=== PATIENT | female | born 1935 | race African-American/Black ===

== ENCOUNTER 2017-11-12 10:26 | Outpatient (CLI) | payer MEDICARE | END 2017-11-12 10:27 | disposition home or self-care (01) | LOC: BICMAMMO 10:26 | PROVIDERS: ATTEND Internal Medicine | DX: Z12.31 Encounter for screening mammogram for malignant neoplasm of breast (principal); Z85.43 Personal history of malignant neoplasm of ovary | CPT/HCPCS: 77063; 77067 ==